=== PATIENT | male | born 1985 | race Caucasian/White ===

== ENCOUNTER 2019-04-30 03:46 | Emergency (ER) | payer OTHER ==
[2019-04-30] MEDS: HYDROCODONE/APAP (5/325) TAB PO (04:21)
== END 2019-04-30 05:32 | disposition home or self-care (01) ==
LOC: FTE 03:46
DX: S52.602A Unspecified fracture of lower end of left ulna, initial encounter for closed fracture (principal); Y08.09XA Assault by strike by other specified type of sport equipment, initial encounter
CPT/HCPCS: 29125; 73090; 99283-25

== ENCOUNTER 2019-05-02 14:10 | Emergency (ER) | payer SELFPAY, OTHER | END 2019-05-02 15:13 | disposition left against medical advice (07) | LOC: FTE 14:10 | DX: Z53.21 Procedure and treatment not carried out due to patient leaving prior to being seen by health care provider (principal) ==